=== PATIENT | male | born 1950 | race Caucasian/White ===

== ENCOUNTER 2016-10-24 04:52 | Emergency (ER) | payer MEDICARE, OTHER ==
[~2016-10-24] VITALS: Ht 177.8 cm; Wt 88.5 kg
--- NOTE | ~2016-10-24 | EKG ---
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: [facility] : 1950 Requested By: Renae Levin Order Number: [id number] MD: Luis Carlos Walsh Measurements Intervals [place] Rate: 57 P: 25 NV: 162 QRS: -39 QRSD: 159 T: -8 QT: 481 QTc: 469 Interpretive Statements Sinus rhythm Right bundle branch block Left anterior hemiblock Nonspecific T wave abnormality Compared to ECG 09/21/2016 22:59:56 No significant change was found Electronically Signed On 10-24-2016 7:56:37 DOCK BUILDER by Luis Carlos Walsh [email or web address] <ELECTRONICALLY SIGNED> By: Luis Carlos Walsh MD, [facility] 10/24/16 0756 1 Luis Carlos Walsh MD, [facility] /EPI
[~2016-10-24 04:52] MED LIST: ALBUTEROL2.5 MG/0.5 INH; AMBIEN 10 MG TA10 MG PO; ASPIR 8181 MG PO; ASPIRIN325 PO; AZITHROMYCIN 2250 MG PO; B-COMPLEX PLUS1 EACH PO; CLONIDINE0.1 PO; COMBIVENT; COZAAR 50 MG TA50 M2 PO; DELTASONE20 MG PO; FLOMAX0.4 MG PO; GABAPENTIN 100100 MG PO; IBUPROFEN 400400 M2 PO; LIPITOR10 MG PO; MELATONIN3 MG PO; MUCINEX TA600 MG/TA2 PO; MULTIVITAMINS PO; NEBULIZER MISCELL; NEURONTIN 300300 M1 PO; NEURONTIN600 MG PO; NORCO 5-325 TA1 EACH PO; NORVASC 2.5 MG2.5 M1 PO; NORVASC 5 MG TAB5 MG PO; NORVASC10 MG PO; NORVASC2.5 MG PO; NORVASC5 MG PO; PREDNISONE 20 M20 MG PO; PROVENTIL HFA6.7 G1 INH; SERTRALINE HCL50 MG PO; STIOLTO RESPIMAT4 GM; TOPROL XL50 MG PO; TUSSIN CF COUG118 M2 PO; VALIUM2 MG; VALIUM2 MG PO; VALIUM5 MG PO; VENTOLIN HFA 1818 GM INH; VITAMIN D3400 UNIT PO; XANAX 0.5 MG0.5 M1; ZOLOFT50 MG PO; ZPAK PO
[2016-10-24 06:03] LABS: ABSOLUTE NEUTROPHILS 3.4 thou/uL (1.4-8.2); BASOPHILS 0.6 % (0.0-2.0); EOSINOPHILS 4.4 % (0.0-3.0); HEMATOCRIT 40.9 % (42.0-52.0); HEMOGLOBIN 14.5 gm/dL (14.0-18.0); LYMPHOCYTES 16.2 % (24.0-44.0); MCH 31.3 pg (26.0-34.0); MCHC 35.5 % (28.0-37.0); MCV 88.3 fL (80.0-100.0); MONOCYTES 7.8 % (1.0-8.0); PLATELET COUNT 189 thou/uL (150-400); RBC 4.63 mil/uL (4.50-6.00); RDW 13.5 % (10.5-14.5); WBC 4.9 thou/uL (4.0-11.0)
[2016-10-24 06:10] LABS: MANUAL DIFF NO
[2016-10-24 06:11] LABS: ANION GAP 8 mmol/L (7-16); BUN 12 mg/dL (7-18); CALCIUM 8.6 mg/dL (8.5-10.1); CHLORIDE 104 mmol/L (98-107); CO2 29 mmol/L (21-32); CREATININE 0.8 mg/dL (0.6-1.3); GLUCOSE 103 mg/dL (70-99); POTASSIUM 3.5 mmol/L (3.5-5.1); SODIUM 141 mmol/L (136-145)
[2016-10-24] MEDS ORDERED: PREDNISONE 20 M20 MG PO (06:24)
[2016-10-24] MEDS ORDERED: AZITHROMYCIN250 MG PO (06:24)
[2016-10-24] MEDS ORDERED: NORVASC5 MG PO (06:24)
[2016-10-24 06:25] LABS: ALBUMIN 3.6 g/dL (3.4-5.0); ALKALINE PHOSPHATASE 72 U/L (46-116); NT-PRO BRAIN NAT PEPTIDE 100 pg/mL (<300); SGOT 16 U/L (15-37); SGPT 18 U/L (30-65); TOTAL BILIRUBIN 0.4 mg/dL (<0.1-1.0); TOTAL PROTEIN 6.4 g/dL (6.4-8.2); TROPONIN-I < 0.04 ng/mL (<0.04-0.07)
[2016-11-01] MEDS ORDERED: LEVALBUTER1.25 MG/0. INH (01:36)
[2016-11-01] MEDS ORDERED: GABAPENTIN 100100 MG PO (20:10)
[2016-11-03] MEDS ORDERED: GABAPENTIN 100100 MG PO (09:03)
[2016-11-03] MEDS ORDERED: MIRALAX17 GM PO (14:05)
[2016-11-03] MEDS ORDERED: COLACE 100 MG100 MG PO (14:05)
[2016-11-03] MEDS ORDERED: NEXIUM40 MG PO (14:48)
== END 2016-10-24 07:17 | disposition home or self-care (01) ==
LOC: ER 04:52
PROVIDERS: Emergency Medicine
DX: J44.1 Chronic obstructive pulmonary disease with (acute) exacerbation (principal); Z76.0 Encounter for issue of repeat prescription; K21.9 Gastro-esophageal reflux disease without esophagitis; F41.8 Other specified anxiety disorders; I10 Essential (primary) hypertension; Z88.8 Allergy status to other drugs, medicaments and biological substances; Z87.891 Personal history of nicotine dependence

== ENCOUNTER 2016-10-28 22:56 | Emergency (ER) | payer MEDICARE, OTHER ==
[~2016-10-28] VITALS: Ht 170.2 cm; Wt 88.5 kg
[~2016-10-28 22:56] MED LIST changes: +AZITHROMYCIN250 MG PO
[2016-11-01] MEDS ORDERED: LEVALBUTER1.25 MG/0. INH (01:36)
[2016-11-01] MEDS ORDERED: GABAPENTIN 100100 MG PO (20:10)
[2016-11-03] MEDS ORDERED: GABAPENTIN 100100 MG PO (09:03)
[2016-11-03] MEDS ORDERED: MIRALAX17 GM PO (14:05)
[2016-11-03] MEDS ORDERED: COLACE 100 MG100 MG PO (14:05)
[2016-11-03] MEDS ORDERED: NEXIUM40 MG PO (14:48)
== END 2016-10-29 00:39 | disposition home or self-care (01) ==
LOC: ER 22:56
DX: I10 Essential (primary) hypertension (principal); H93.19 Tinnitus, unspecified ear; R06.02 Shortness of breath; F41.9 Anxiety disorder, unspecified; F32.9 Major depressive disorder, single episode, unspecified; K21.9 Gastro-esophageal reflux disease without esophagitis; J44.9 Chronic obstructive pulmonary disease, unspecified; Z88.8 Allergy status to other drugs, medicaments and biological substances; Z87.891 Personal history of nicotine dependence

== ENCOUNTER 2020-06-02 15:39 | Inpatient (IN) | payer OTHER ==
[~2020-06-02] VITALS: Ht 175.3 cm; Wt 59.1 kg
--- NOTE | ~2020-06-02 | EMS ---
[facility] [address] [place] [address] EMS Patient Care Report Name: TAYLER JARAMILLO Room #: 459-P ADM IN M.R.#: [id number] Admission: 06/02/20 Attend Phys: Dakota Norton MD Discharge: Date of : 50 Report #: [id number] THIS REPORT FOR: //name// Report Transmitted: 06/07/2020 06:59 EMS Care Summary [place], [place]/[facility] Incident [id number] @ 06/02/2020 14:48 Incident Location [address] [place] [address] Patient TAYLER JARAMILLO Male, 69 Years 1950 Patient Address [address] [place] [address] Chief Complaint Pt appeared weak Disposition Transported [place] Dispatch Reason Sick Person Transported To [facility] Narrative Called to the scene for a welfare on an unknown. Upon arrival, [facility] on the scene. Pt was at a local motel and had been there for several days. Staff was able to communicate as to why, just said someone check him in. Pt was awake and talking, but appeared to be fairly sick. He was very weak, appeared pale, possibly a little diaphoretic, barely answer questions and when he did it was very hard to understand him. He did not appear to be in any pain or respiratory distress. He agreed to go to [facility] ER for further eval and tx. Because of unknown Covid status, crews donned PPE. A mask was placed on the pt. He was moved to the EMS cot and loaded into the ambulance w/o incident. Vitals obtained. IV & D-stick. 4 Lead. Vitals repeated. Pt heart rate was [facility] [address] [place] [address] EMS Patient Care Report Name: TAYLER JARAMILLO Room #: 459-P ADM IN M.R.#: [id number] Admission: 06/02/20 Attend Phys: Dakota Norton MD Discharge: Date of : 50 Report #: [id number] in the 40s, strong radial and adequate BP. En route: RR to [facility]. Arrived: pt taken to ER #12 and moved to their bed w/o incident. Pt care & report to ER staff. Initial Vitals @15:28P: 49,SpO2: 99, @15:30P: 49,SpO2: 99, @15:27P: 48,R: 12,BP: 128/81,GCS: 14,Glucose: 80,SpO2: 99,Revised Trauma: 12, @15:27P: 48, @15:23P: 46,R: 12,BP: 133/82,Pain: 0/10,GCS: 14,Revised Trauma: 12, @15:31P: 48,SpO2: 98,OR Suspected: false Assessments @15:05MENTAL:Confused,Person Oriented,Place Oriented,SKIN:Pale,HEENT:LUNG SOUNDS:ABDOMEN:PELVIS//GI:EXTREMITIES:Left Arm: No Abnormalities,Right Arm: No Abnormalities,Left Leg: No Abnormalities,Right Leg: No Abnormalities,PULSE:Radial: 2+ Normal,NEURO:No Abnormalities, Impression Generalized Weakness Procedures @15:05ALS AssessmentResponse: UnchangedSucceeded@15:12StretcherResponse: Unchanged@15:233-Lead ECGResponse: UnchangedSucceeded@15:28Saline Lock 8cc (18 ga) Site: Antecubital-LeftResponse: UnchangedSucceeded Timeline 14:43,Call Received 14:43,Dispatch Notified 14:48,Dispatched 14:50,En Route 15:03,On Scene 15:05,At Patient 15:05,ALS Assessment,Response: UnchangedSucceeded, 15:12,Stretcher,Response: Unchanged 15:23,3-Lead ECG,Response: UnchangedSucceeded, 15:23,BP: 133/82 M,PULSE: 46,RR: 12 R,SPO2: Ox,ETCO2: ,BG: ,PAIN: 0,GCS: 14, 15:27,BP: / M,PULSE: 48,RR: R,SPO2: Ox,ETCO2: ,BG: ,PAIN: ,GCS: , 15:27,BP: 128/81 M,PULSE: 48,RR: 12 R,SPO2: 99 Ox,ETCO2: ,B,PAIN: ,GCS: 14, 15:28,Saline Lock 8cc 18 ga Site: Antecubital-Left,Response: UnchangedSucceeded, 15:28,BP: / M,PULSE: 49,RR: R,SPO2: 99 Ox,ETCO2: ,BG: ,PAIN: ,GCS: , 15:29,Depart Scene 15:30,BP: / M,PULSE: 49,RR: R,SPO2: 99 Ox,ETCO2: ,BG: ,PAIN: ,GCS: , 15:31,BP: / M,PULSE: 48,RR: R,SPO2: 98 Ox,ETCO2: ,BG: ,PAIN: ,GCS: , 15:35,At Destination [facility] [address] [place] [address] EMS Patient Care Report Name: TAYLER JARAMILLO Room #: 459-P ADM IN M.R.#: [id number] Admission: 06/02/20 Attend Phys: Dakota Norton MD Discharge: Date of : 50 Report #: [id number] 15:35,Call Closed Disclaimer v1.1 Copyright 2020 [employer] This EMS Care Summary contains data elements from the applicable legal record (which may be displayed differently). It is designed to provide pertinent information for the following purposes: continuity of care, clinical quality, and state data reporting. The complete legal record is available to ED staff and administrators of the receiving hospital in [employer] Patient Tracker. All data is provided "as is."
--- NOTE | ~2020-06-02 | HC ---
[facility] [place] [address] CONSULTATION Name: TAYLER JARAMILLO Room #: 459-P ADM IN M.R.#: [id number] Admission: 06/02/20 Attend Phys: Dakota Norton MD Discharge: Date of : 50 Report #: [id number] THIS REPORT FOR: cc: MIMI - Patsy family physician/PCP MIMI - Patsy family physician/PCP Neri Collins MD ~ CC: Dakota LE physician/PCP DATE OF SERVICE: 06/07/2020 HISTORY OF PRESENT ILLNESS: The patient is a 69-year-old male admitted from an extended stay hotel with mental status changes, confusion. Apparently, he had not been out of bed for several days. Noted to have a right upper lobe mass ____ liver densities. Plan from Pulmonary is that he needs bronchoscopy and a biopsy to be scheduled as an outpatient. He has been diagnosed with toxic metabolic encephalopathy. He was seen by Neurology and thought to have a baseline dementia. MRI showed some chronic changes. We are seeing him in rehabilitation medicine consultation. 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 HABITS: A 76-waft-obwq history of tobacco. MEDICATIONS: Please see the full medication listing. ALLERGIES: As listed. SOCIAL HISTORY: The patient is a limited historian. He was staying at the extended stay hotel as noted above. Apparently, he had been to [place] visiting his daughter. Per case management notes, the family is wanting him to move into [place]. It sounds like he has had a decline over the past several weeks to months. The patient's family had arranged for some private duty to check in on him and now they are interested in having him moved to [place]. REVIEW OF SYSTEMS: Limited. PHYSICAL EXAMINATION: GENERAL: This is a 69-year-old slender white male sitting up. He was essentially nonverbal for me, will follow basic 1 step commands. NEUROLOGIC: Appears to have strength grade 4- to 3+/5 both upper and lower extremities. He has been up with physical therapy and was min assist coming to stand and ambulated 30 feet min assist with the IV pole. As far as his swallowing, he is on a pure[place] [address] CONSULTATION Name: TAYLER JARAMILLO Room #: 459-P [facility] IN .R.#: [id number] Admission: 06/02/20 Attend Phys: Dakota Norton MD Discharge: Date of : 50 Report #: [id number] ASSESSMENT: This is a 69-year-old male with the following problem list: 1. Metabolic encephalopathy. 2. Apparent baseline dementia. 3. Right lung mass, new diagnosis with note of some liver densities. He is to have bronchoscopy and biopsy as an outpatient. 4. Hypertension. 5. Chronic obstructive pulmonary disease. 6. History of squamous cell cancer. PLAN: My understanding is that the patient is to be moved to [place] as per the family request. He had been in an extended stay hotel. I am in favor of this plan and would not anticipate that he would be an [address] inpatient rehabilitation candidate for this reason. We will continue to follow along with you for now, but would be my understanding that he would go to [place]. Thank you for asking me to assist in this patient's care. By: 1046 [id number] Neri Collins MD /CARLOS
[~2020-06-02 15:39] MED LIST changes: +COLACE 100 MG100 MG PO; +LEVALBUTER1.25 MG/0. INH; +MIRALAX17 GM PO; +NEXIUM40 MG PO
[2020-06-02 15:40] VITALS: BP 128/81
[2020-06-02 16:10] LABS: ANION GAP 6 mmol/L (7-16); BUN 23 mg/dL (7-18); CALCIUM 8.8 mg/dL (8.5-10.1); CHLORIDE 106 mmol/L (98-107); CO2 30 mmol/L (21-32); CREATININE 0.8 mg/dL (0.7-1.3); GLUCOSE 74 mg/dL (74-106); POTASSIUM 3.7 mmol/L (3.5-5.1); SODIUM 142 mmol/L (136-145)
[2020-06-02 16:14] LABS: ABSOLUTE NEUTROPHILS 2.9 thou/uL (1.4-8.2); BASOPHILS 0.8 % (0.0-2.0); EOSINOPHILS 2.8 % (0.0-3.0); HEMATOCRIT 40.5 % (42.0-52.0); HEMOGLOBIN 14.1 gm/dL (14.0-18.0); LYMPHOCYTES 19.1 % (24.0-44.0); MCH 31.8 pg (26.0-34.0); MCHC 34.8 g/dL (28.0-37.0); MCV 91.3 fL (80.0-100.0); MONOCYTES 9.6 % (1.0-8.0); PLATELET COUNT 181 thou/uL (150-400); POLYS 67.7 % (36.0-66.0); RBC 4.44 mil/uL (4.50-6.00); WBC 4.2 thou/uL (4.0-11.0)
[2020-06-02 16:19] LABS: MAGNESIUM 2.1 mg/dL (1.8-2.4); TROPONIN-I <0.06 ng/mL (<0.06)
[2020-06-02 17:24] LABS: SALICYLATE < 2.8 mg/dL (2.8-20.0)
[2020-06-02 18:34] LABS: URINE BILIRUBIN NEGATIVE (Negative); URINE BLOOD NEGATIVE (Negative); URINE CLARITY CLEAR; URINE COLOR YELLOW; URINE GLUCOSE-RANDOM* NEGATIVE (Negative); URINE KETONES 1+ (Negative); URINE LEUKOCYTES-REFLEX NEGATIVE (Negative); URINE NITRITE-REFLEX NEGATIVE (Negative); URINE PROTEIN (DIPSTICK) NEGATIVE (Negative); URINE SPECIFIC GRAVITY 1.025 (1.005-1.035); URINE UROBILINOGEN 0.2 E.U./dl (0.2-1.0)
[2020-06-02 18:53] LABS: AMP/METHAMP Negative (Negative); BARBITURATES Negative (Negative); BENZODIAZEPINES Negative (Negative); COCAINE Negative (Negative); METHADONE Negative (Negative); OPIATES Negative (Negative); PCP Negative (Negative)
[2020-06-02 22:15] VITALS: BP 118/73
[2020-06-02 22:40] VITALS: BP 117/76
[2020-06-02 23:25] VITALS: BP 132/74
[2020-06-03 04:29] VITALS: BP 141/78
[2020-06-03 06:12] LABS: HEMOGLOBIN 13.4 gm/dL (14.0-18.0); MCH 32.2 pg (26.0-34.0); MCHC 35.3 g/dL (28.0-37.0); MCV 91.2 fL (80.0-100.0); RBC 4.17 mil/uL (4.50-6.00); RDW 13.2 % (10.5-14.5); WBC 4.1 thou/uL (4.0-11.0)
[2020-06-03 06:37] LABS: CALCIUM 8.5 mg/dL (8.5-10.1); CREATININE 0.5 mg/dL (0.7-1.3); MAGNESIUM 2.1 mg/dL (1.8-2.4); POTASSIUM 3.6 mmol/L (3.5-5.1)
[2020-06-03 07:37] VITALS: BP 119/72
--- NOTE | 2020-06-03 09:13 | EKG ---
[facility] [place] [address] ELECTROCARDIOGRAM REPORT Name: FCO JARAMILLO Room #: 359-P ADM IN M.R.#: [id number] Admission: 06/02/20 Attend Phys: Dakota Norton MD Discharge: Date of : 50 Report #: [id number] THIS REPORT FOR: cc: MIMI - No family physician/PCP FAM - No family physician/PCP Osbaldo Wright MD ~ THIS REPORT FOR: //name// [facility] ED Test Date: 2020-06-02 Test Time: 16:04:26 Pat Name: FCO JARAMILLO Department: Room: [facility] Gender: M Mutual Funds Agent: bill : 1950 Requested By: Fco Flores Order Number: [id number] MD: Osbaldo Wright Measurements Intervals [place] Rate: 46 P: 25 PA: 179 QRS: -63 QRSD: 182 T: 51 QT: 504 QTc: 441 Interpretive Statements Sinus bradycardia RBBB and LAFB Probable left ventricular hypertrophy Baseline wander in lead(s) V4 Compared to ECG 10/31/2016 21:35:34 Sinus rhythm no longer present Electronically Signed On 06-03-2020 9:12:46 CDT by Osbaldo Wright [email or web address] <ELECTRONICALLY SIGNED> By: Osbaldo Wright MD 06/03/20 0912 [id number] [id number] Osbaldo Wright MD /EPI
[2020-06-03 16:19] VITALS: BP 109/70
[2020-06-04 06:26] VITALS: BP 144/80
[2020-06-04 07:13] VITALS: BP 131/81
[2020-06-04 15:13] VITALS: BP 114/75
[2020-06-04 20:05] VITALS: BP 122/74
[2020-06-05] VITALS (7 sets, daily range): BP systolic 132–149; BP diastolic 67–84
[2020-06-05 05:28] LABS: HCO3 26.5 mmol/L (22.0-26.0); PCO2 40.9 mmHg (35.0-45.0); PO2 78.3 mmHg (80.0-100.0); pH 7.429 (7.360-7.450); sO2 95.9 % (92.0-98.0)
[2020-06-05 05:36] LABS: ABSOLUTE NEUTROPHILS 3.6 thou/uL (1.4-8.2); BASOPHILS 0.5 % (0.0-2.0); EOSINOPHILS 1.7 % (0.0-3.0); HEMATOCRIT 36.6 % (42.0-52.0); HEMOGLOBIN 13.2 gm/dL (14.0-18.0); LYMPHOCYTES 10.7 % (24.0-44.0); MCH 32.7 pg (26.0-34.0); MCHC 36.1 g/dL (28.0-37.0); MCV 90.5 fL (80.0-100.0); PLATELET COUNT 161 thou/uL (150-400); POLYS 80.1 % (36.0-66.0); RBC 4.04 mil/uL (4.50-6.00); RDW 12.9 % (10.5-14.5); WBC 4.5 thou/uL (4.0-11.0)
[2020-06-05 06:01] LABS: ALBUMIN 2.9 g/dL (3.4-5.0); CALCIUM 8.3 mg/dL (8.5-10.1); CREATININE 0.6 mg/dL (0.7-1.3); POTASSIUM 3.7 mmol/L (3.5-5.1); TOTAL BILIRUBIN 0.4 mg/dL (0.2-1.0); TOTAL PROTEIN 5.7 g/dL (6.4-8.2)
[2020-06-06 07:49] VITALS: BP 152/82
[2020-06-06 15:30] VITALS: BP 123/71
[2020-06-06 19:31] VITALS: BP 125/66
[2020-06-07 08:00] VITALS: BP 128/66
[2020-06-07] MEDS ORDERED: CARBIDOPA-LEVO1 EAC9 PO (11:42)
[2020-06-07] MEDS ORDERED: AUGMENTIN 500-1 EACH PO (11:44)
[2020-06-07 15:37] VITALS: BP 136/69
[2020-06-07 19:10] VITALS: BP 140/72
[2020-06-08 07:00] VITALS: BP 133/85
== END 2020-06-08 17:43 | DRG 180 ==
LOC: ER 15:39 → 4W 19:27 → EROBS 19:27 → 3W 19:27 → 4W 06-04 19:56
PROVIDERS: Emergency Medicine; Nurse Practitioner Family; Pediatrics; Psychiatry & Neurology Neurology; ADMIT Hospitalist; ATTEND Hospitalist
DX: C34.91 Malignant neoplasm of unspecified part of right bronchus or lung (principal); G93.41 Metabolic encephalopathy; J96.21 Acute and chronic respiratory failure with hypoxia; Z68.1 Body mass index [BMI] 19.9 or less, adult; C78.7 Secondary malignant neoplasm of liver and intrahepatic bile duct; D49.1 Neoplasm of unspecified behavior of respiratory system; R91.8 Other nonspecific abnormal finding of lung field; I10 Essential (primary) hypertension; F41.9 Anxiety disorder, unspecified; F32.9 Major depressive disorder, single episode, unspecified; K21.9 Gastro-esophageal reflux disease without esophagitis; R62.7 Adult failure to thrive; R53.1 Weakness; N40.0 Benign prostatic hyperplasia without lower urinary tract symptoms; R47.1 Dysarthria and anarthria; G47.33 Obstructive sleep apnea (adult) (pediatric); E66.01 Morbid (severe) obesity due to excess calories; G20 Parkinson's disease; J44.9 Chronic obstructive pulmonary disease, unspecified; F02.80 Dementia in other diseases classified elsewhere, unspecified severity, without behavioral disturbance, psychotic disturbance, mood disturbance, and anxiety; Z66 Do not resuscitate; Z20.828 Contact with and (suspected) exposure to other viral communicable diseases; Z79.899 Other long term (current) drug therapy; Z88.5 Allergy status to narcotic agent; Z88.8 Allergy status to other drugs, medicaments and biological substances; Z87.891 Personal history of nicotine dependence; Z86.018 Personal history of other benign neoplasm
CPT/HCPCS: 10047; 10779

== ENCOUNTER 2020-06-23 13:48 | Emergency (ER) | payer MEDICARE, OTHER ==
[~2020-06-23] VITALS: Ht 177.8 cm; Wt 57.6 kg
[~2020-06-23 13:48] MED LIST changes: +AUGMENTIN 500-1 EACH PO; +CARBIDOPA-LEVO1 EAC9 PO
[2020-06-23 14:36] VITALS: BP 129/77
== END 2020-06-23 15:30 | disposition home or self-care (01) ==
LOC: ER 13:48
DX: K40.90 Unilateral inguinal hernia, without obstruction or gangrene, not specified as recurrent (principal); R41.82 Altered mental status, unspecified; I10 Essential (primary) hypertension; F32.9 Major depressive disorder, single episode, unspecified; F41.9 Anxiety disorder, unspecified; K21.9 Gastro-esophageal reflux disease without esophagitis; J44.9 Chronic obstructive pulmonary disease, unspecified; Z79.899 Other long term (current) drug therapy; Z79.2 Long term (current) use of antibiotics; Z88.8 Allergy status to other drugs, medicaments and biological substances; Z87.891 Personal history of nicotine dependence

== ENCOUNTER 2020-08-06 19:47 | Inpatient (IN) | payer MEDICARE, OTHER ==
[~2020-08-06] VITALS: Ht 170.2 cm; Wt 54.8 kg
[2020-08-06 19:47] VITALS: BP 124/79
[2020-08-06 20:04] LABS: ABSOLUTE NEUTROPHILS 4.3 thou/uL (1.4-8.2); BASOPHILS 0.7 % (0.0-2.0); EOSINOPHILS 2.1 % (0.0-3.0); HEMOGLOBIN 12.8 gm/dL (14.0-18.0); LYMPHOCYTES 9.3 % (24.0-44.0); MCH 31.1 pg (26.0-34.0); MCHC 34.7 g/dL (28.0-37.0); MCV 89.6 fL (80.0-100.0); MONOCYTES 5.5 % (1.0-8.0); PLATELET COUNT 158 thou/uL (150-400); POLYS 82.4 % (36.0-66.0); RBC 4.13 mil/uL (4.50-6.00); RDW 13.5 % (10.5-14.5); WBC 5.2 thou/uL (4.0-11.0)
[2020-08-06 20:11] LABS: CALCIUM 9.3 mg/dL (8.5-10.1); CREATININE 0.9 mg/dL (0.7-1.3); MAGNESIUM 2.4 mg/dL (1.8-2.4); POTASSIUM 4.1 mmol/L (3.5-5.1)
[2020-08-06 20:14] LABS: URINE BILIRUBIN NEGATIVE (Negative); URINE BLOOD 3+ (Negative); URINE CLARITY CLEAR; URINE COLOR YELLOW; URINE GLUCOSE-RANDOM* NEGATIVE (Negative); URINE KETONES NEGATIVE (Negative); URINE LEUKOCYTES-REFLEX NEGATIVE (Negative); URINE NITRITE-REFLEX NEGATIVE (Negative); URINE PROTEIN (DIPSTICK) NEGATIVE (Negative); URINE SPECIFIC GRAVITY 1.025 (1.005-1.035); URINE UROBILINOGEN 0.2 E.U./dl (0.2-1.0)
[2020-08-06 20:20] LABS: MUCUS 0-3 Light strn/LPF (None Seen); SQUAMOUS 0-3 Few /LPF (0-3); URINE RBC >20 Many /HPF (0-2)
[2020-08-06 20:21] LABS: HYALINE CASTS 0-3 Few /LPF (None Seen); URINE WBC-REFLEX 0-5 Rare /HPF (0-5)
[2020-08-06 20:22] LABS: BACTERIA-REFLEX 1-9 Few /HPF (None Seen); CRYSTALS None Seen /LPF (None Seen)
[2020-08-06] MEDS ORDERED: ASPIRIN PO (22:17)
[2020-08-06 22:36] VITALS: BP 131/76
--- NOTE | 2020-08-06 22:37 | NUR ---
HAND OFF TOOL SENT TO [facility]
[2020-08-06 22:44] VITALS: BP 131/76
[2020-08-06 23:12] VITALS: BP 138/82
--- NOTE | 2020-08-06 23:15 | NUR ---
Assumed care of patient this pm shift. Patient transferred via cart from the emergency room. Patient is mostly nonverbal and when he speaks he speaks in a whisper. Patient can write to make needs known. Patient is weak and was tranferred to bed from er cart via draw sheet and assist x3. Patient denies pain. Patient signed consents. We will continue to monitor via hospital protocol.
[2020-08-07 05:55] LABS: HEMATOCRIT 37.1 % (42.0-52.0); HEMOGLOBIN 12.7 gm/dL (14.0-18.0); MCH 30.9 pg (26.0-34.0); MCHC 34.3 g/dL (28.0-37.0); RBC 4.12 mil/uL (4.50-6.00); RDW 13.2 % (10.5-14.5); WBC 4.3 thou/uL (4.0-11.0)
[2020-08-07 06:09] LABS: CALCIUM 8.7 mg/dL (8.5-10.1); CREATININE 0.8 mg/dL (0.7-1.3); MAGNESIUM 2.3 mg/dL (1.8-2.4); POTASSIUM 3.7 mmol/L (3.5-5.1)
[2020-08-07 14:17] VITALS: BP 115/73
--- NOTE | 2020-08-07 18:42 | NUR ---
ASSUMED CARE OF PATIENT AT 0700. ASSESSMENT CHARTED. MEDS GIVEN PER MAR. VSS. PATIENT IS ALERT BUT IS NON-VERBAL MOSTLY. PATIENT IS ABLE TO USE A NOTEPAD AND PEN TO WRITE HIS NEEDS. PATIENT DENIES PAIN BUT EXPRESSES CONCERN FOR WANTING TO EAT. ST WAS CALLED AND PATIENT WAS FOUND HIDING CHEETOS IN HIS SHEETS. PATIENT HAS APHAGIA AND IS UNABLE TO EAT BY HIMSELF. ST PUT DIET. PATIENT IS TO HAVE NURSE SUPERVISION WHEN EATING AT ALL TIMES. SUPPLEMENTS ARE PROVIDED PATIENT IS CACHECTIC D/T INABILITY TOP KEEP FOOD DOWN. PATIENT WAS UP X 1 WITH CANE TO CHAIR. USES URINAL TO VOID. PATIENT HAS NOT HAD A BM TODAY. FREQUENT CHECKS ON PATIENT. WILL CONTINUE TO MONITOR
[2020-08-07 21:37] VITALS: BP 113/63
--- NOTE | 2020-08-08 04:25 | NUR ---
Pt. rested quietly at intervals during the night when checked on during frequent rounds. He offers no c/o pain. Incontinent of urine and kim care was given. Pt. speaks very softly and at times can be difficult to communicate with. Bed alarm is on.
[2020-08-08 05:50] LABS: ABSOLUTE NEUTROPHILS 3.8 thou/uL (1.4-8.2); BASOPHILS 0.3 % (0.0-2.0); EOSINOPHILS 1.4 % (0.0-3.0); HEMATOCRIT 35.3 % (42.0-52.0); HEMOGLOBIN 12.1 gm/dL (14.0-18.0); MCH 31.2 pg (26.0-34.0); MCHC 34.4 g/dL (28.0-37.0); MCV 90.5 fL (80.0-100.0); MONOCYTES 5.5 % (1.0-8.0); PLATELET COUNT 129 thou/uL (150-400); POLYS 85.8 % (36.0-66.0); RDW 13.2 % (10.5-14.5); WBC 4.4 thou/uL (4.0-11.0)
[2020-08-08 06:07] LABS: CALCIUM 8.4 mg/dL (8.5-10.1); CREATININE 0.8 mg/dL (0.7-1.3); MAGNESIUM 2.2 mg/dL (1.8-2.4); PHOSPHORUS 2.8 mg/dL (2.5-4.9); POTASSIUM 3.2 mmol/L (3.5-5.1); TOTAL BILIRUBIN 0.3 mg/dL (0.2-1.0); TOTAL PROTEIN 5.8 g/dL (6.4-8.2)
[2020-08-08 08:10] VITALS: BP 124/81
--- NOTE | 2020-08-08 12:32 | NUR ---
ASSUMED PT CARE THIS AM. PT VSS. PT IMPULSIVE, STANDING UP AND DOES NOT WAIT FOR NURSE TO PUT ON GAIT BELT OR GRAB WALKER. PT CONTINUES TO DO SO. PT EATING SLOWLY, BUT SWALLOWING FOOD. PT WRITES NEEDS DOWN ON PAPER TO COMMUNICATE. SLEEPING AT THE MOMENT. FLUIDS INFUSING. WILL CONTINUE TO MONITOR.
[2020-08-08 15:29] VITALS: BP 105/76
[2020-08-08 19:19] VITALS: BP 110/79
--- NOTE | 2020-08-09 05:43 | NUR ---
Pt. rested quietly at intervals during the night when checked on during frequent rounds. He has been able to void without difficulty and refused to be catherized. No c/o pain or discomfort. Ambulated with cane to the bathroom and he had a bowel movement. Assisted with partial sponge bath at the bathroom sink. Bed alarm in on.
[2020-08-09 06:10] LABS: BASOPHILS 0.5 % (0.0-2.0); EOSINOPHILS 2.8 % (0.0-3.0); HEMATOCRIT 34.6 % (42.0-52.0); HEMOGLOBIN 11.9 gm/dL (14.0-18.0); LYMPHOCYTES 6.9 % (24.0-44.0); MCHC 34.3 g/dL (28.0-37.0); MCV 90.2 fL (80.0-100.0); MONOCYTES 6.6 % (1.0-8.0); PLATELET COUNT 147 thou/uL (150-400); POLYS 83.2 % (36.0-66.0); RBC 3.84 mil/uL (4.50-6.00); RDW 13.4 % (10.5-14.5); WBC 4.8 thou/uL (4.0-11.0)
[2020-08-09 06:19] LABS: CALCIUM 8.4 mg/dL (8.5-10.1); CREATININE 0.7 mg/dL (0.7-1.3); MAGNESIUM 2.2 mg/dL (1.8-2.4); PHOSPHORUS 2.3 mg/dL (2.5-4.9); POTASSIUM 4.1 mmol/L (3.5-5.1)
--- NOTE | 2020-08-09 07:39 | EKG ---
[facility] [place] [address] ELECTROCARDIOGRAM REPORT Name: FCO JARAMILLO Room #: 460-P ADM IN M.R.#: [id number] Admission: 08/06/20 Attend Phys: Nancy Yañez MD Discharge: Date of : 50 Report #: [id number] THIS REPORT FOR: cc: Jeyson Monroe MD, Shyam MD Lundgren,Luis Carlos Nicolas MD [facility] ~ THIS REPORT FOR: //name// [facility] ED Test Date: 2020-08-06 Test Time: 20:04:28 Pat Name: FCO JARAMILLO Department: Room: [facility] Gender: M Animal Care Supervisor: [facility] 1950 Requested By: Fco Flores Order Number: [id number] MD: Luis Carlos Walsh Measurements Intervals [place] Rate: 51 P: 38 [place]: 173 QRS: -62 QRSD: 162 T: 68 QT: 511 QTc: 471 Interpretive Statements Sinus rhythm RBBB and LAFB Compared to ECG 06/02/2020 16:04:26 Sinus bradycardia no longer present Electronically Signed On 08-09-2020 7:39:32 SHEARING SHED WORKER by Luis Carlos Walsh [email or web address] <ELECTRONICALLY SIGNED> By: Luis Carlos Walsh MD, FAC 08/09/20 0739 03 03 Luis Carlos Walsh MD, [facility] /EPI
[2020-08-09 08:00] VITALS: BP 102/66
--- NOTE | 2020-08-09 13:43 | NUR ---
PT A&OX2-3, VSS, AFEBRILE, DENIES PAIN. PATIENT USES WRITING BOARD TO COMMUNICATE. PATIENT TOLERATING DIET AND EATING 90 PERCENT. PT HAD PT/OT TODAY. NO SIGNS OF DISTRESS. WILL CONTINUE TO MONITOR.
[2020-08-09 15:30] VITALS: BP 116/67
--- NOTE | 2020-08-09 15:57 | NUR ---
PT ADMITTED RELATED TO DYSPHAGIA; WEAKNESS. CM REVIEWED CHART AND SPOKE WITH CARE TEAM. CM VISITED WITH PT AT BEDSIDE THIS AFTERNOON. PT IS HARD TO UNDERSTAND BUT IS ABLE TO COMMUNICATE VERBALLY. PT INDICATED HE HAD BEEN LIVING IN [place] N[place]K CUT[place]. 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 CHART INDICATED THAT PT HAD [place] FEMALE CAREGIVERS WITH HIM BUT PT DIDN'T CONFIRM THIS. AT LAST ADMISSION TO HAD DISCHARGED TO RW. H&P INDICATED THAT PT LEFT AMA AND RETURNED TO [place]. PT INDICATED HE WOULDN'T RETURN TO RW. HE ASKED ABOUT GETTING DENTURES. PT INDICATED CM COULD SPEAK WITH PT'S CONTACTS ADRY MACARIO AND BROTHER. PT INDICATED THAT HE WASN'T APPOSED TO GOING TO A FACILITY UPON DC JUST NOT RWBR. DR. GARSIA HAD REVIEWED PT'S CHART AND INDICATED THAT HE WOULD BE APPROPRIATE FOR HOSPICE SERVICES POTENTIALLY IN AN LTC SETTING. CM ASKED IF PT WAS FAMILIAR WITH HOSPICE CARE AND HE SAID HE HAD HEARD OF IT. BRIDGETTE HAD GOTTEN CALL FROM JULIO WITH [facility] RELATED TO A HOTLINE REPORT . HE INDICATED THAT HE HAD BEEN ENCOURAGING PT TO LOOK AT GOING SOMEWHERE WHERE HE COULD GET MORE CARE. CM TO PROVIDE PT WITH LIST OF FACILITIES FOR REVIEW. CM TO FOLLOW INDICATED WITH DC PLANNING.
[2020-08-09 19:35] VITALS: BP 120/85
[2020-08-09 21:20] LABS: URINE BILIRUBIN NEGATIVE (Negative); URINE BLOOD TRACE (Negative); URINE CLARITY SL CLOUDY; URINE COLOR YELLOW; URINE GLUCOSE-RANDOM* NEGATIVE (Negative); URINE KETONES TRACE (Negative); URINE LEUKOCYTES-REFLEX NEGATIVE (Negative); URINE NITRITE-REFLEX NEGATIVE (Negative); URINE PROTEIN (DIPSTICK) NEGATIVE (Negative); URINE UROBILINOGEN 0.2 E.U./dl (0.2-1.0)
--- NOTE | 2020-08-10 05:12 | NUR ---
ASSUMED CARE OF PT AT 1900HRS. PT AOX2-3 AND LETS NEEDS BE KNOWN. FALL PRECAUTION IN PLACE. PT DENIES PAIN, NAUSEA OR SOA. ASSESSMENT CHARTED. PT WAS ABLE TO GET COMFORTABLE AND SLEEP PART OF THE SHIFT. PT TOOK ALL HS MEDS CHRUSHED WITH PUDDING. VSS AND NO S/S OF ACUTE DISTRESS. WILL CONTINUE TO MONITOR.
[2020-08-10 10:46] VITALS: BP 121/87
--- NOTE | 2020-08-10 12:19 | NUR ---
Alert and orientated. Some verbalizations, mostly uses motions to communicate. Breath sounds clear and diminished. Reg HR auscultated. Color pink with brisk capillary refill and palpable peripheral pulses. Yellow urine per report. Active bowel sounds over soft, flat abdomen. Buttocks reddened. Plan on DC today.
--- NOTE | 2020-08-10 16:15 | NUR ---
PT INDICATED HE IS RECEPTIVE TO GOING TO A FACILITY FOR LTC. CM MET WITH PT AT BEDSIDE THIS DAY AND PROVIDED LIST FOR REVIEW. CM TO FOLLOW UP WITH PT TO SEE WHERE HE WANTS REFERRALS SENT. CM TO FOLLOW INDICATED WITH DC PLANNING.
[2020-08-10 17:02] VITALS: BP 109/66
[2020-08-10 19:30] VITALS: BP 112/73
--- NOTE | 2020-08-10 20:38 | NUR ---
ASSUMED CARE OF PATIENT AT 1200, PATIENT ALERT WITH APHASIC EXPRESSIONS, BUT WAS ABLE TO SPEAK AT TIMES DURNG THE SHIFT, DELAY WITH RESPONSE. MEDS GIVEN CRUSHED PRIOR TO TOASSUMING CARE, PATIENT ON SWALLOW PRECAUTIONS. ALERT AND ORIENTED 2-3. COVID TEST DONE FOR PLACEMENT. WILL CONTINUE TO MONITOR.
--- NOTE | 2020-08-11 04:25 | NUR ---
ASSUMED CARE OF PT AT 1900HRS. PT AOX2-[address] PT DENIED PAIN NAUSEA OR SOA. PT TOOK ALL MEDS CRUSHED WITH APPLESAUSE. PT WAS ABLE TO GET COMFORTABLE AND SLEEP PART OF THE SHIFT. VSS AND NO S/S OF AVUTE DISTRESS. WILL CONTINUE TO MONITOR.
--- NOTE | 2020-08-11 11:43 | NUR ---
CM MET WITH PT AT BEDSIDE THIS DAY. PT ASKED THAT REFERRALS BE SENT TO [facility] FOR REVIEW FOR POSSIBLE ADMISSION. PT HAS BEEN SEEN BY DR. NORRIS WHO INDICATED THAT PT HAS CAPACILITY TO MAKE DECISIONS AT THIS TIME. DR. GARSIA HAD SPOKEN WITH PT ABOUT HOSPICE SERVICES AND HE INDIACTED THAT HE WAS RECEPTIVE TO INFORMATION. LOOKING AT POSSIBLE SKILLED TO LTC WITH POSSIBLE HOSPICE SERVICES. CM TO FOLLOW INDICATED WITH DC PLANNING.
[2020-08-11 13:52] VITALS: BP 112/73
[2020-08-11 14:33] VITALS: BP 107/73
--- NOTE | 2020-08-11 16:50 | NUR ---
ASSUMED CARE OF PATIENT AT SHIFT CHANGE. ASSESSMENT CHARTED. MEDS GIVEN PER MAR. VSS. PATIENT IS AWAKE AND MAKES NEEDS KNOWN IN WRITING. ON PUREED DIET D/T APHAGIA BUT REFUSES HELP TO EAT. THIS NURSE OBSERVED PATIENT TRYING TO EAT BUT PATIENT GAVE A THUMBS UP AND SHOOK HEAD AFTER BEING ASKED IF ANY HELP WAS NEEDED. PATIENT INFORMED THIS NURSE ABOUT "DIAPER RASH". PATIENT ENCOURAGED TO REPOSITION OFTEN AND WAS PROVIDED BARRIER CREAM. BARRIER CREAM APPLIED TO BOTTOM W SLIGHT REDNESS NOTED. PATIENT VOICED NO NEEDS AND CONTINUES TO NAP ON AND OFF THROUGHOUT DAY. FALL PRECAUTIONS IN PLACE. PATIENT GETS UP AT TIMES AND SETS ALARM OFF; FREQUENT CHECKS DONE. WILL CONTINUE TO MONITOR
[2020-08-11 19:22] VITALS: BP 109/78
--- NOTE | 2020-08-11 19:26 | NUR ---
I AGREE WITH NURSING ASSESSMENT AND NURSING NOTE DONE BY JESSICA/STATE COMPTROLLER.
--- NOTE | 2020-08-12 02:52 | NUR ---
ASSUMED CARE OF PT AROUND 1900HR. PT AOX2-3 AND LETS NEEDS BE KNOWN. FALL PRECAUTION IN PLACE. PT DENIES PAIN, NAUSEA OR SOA. PT REFUSES ASSISTANCE WITH FEEDING. ASSESSMENT CHARTED. PT WAS ABLE TO GET COMFORTABLE AND SLEEP PART OF THE SHIFT. VSS AND NO S/S OF ACUTE DISTRESS. WILL CONTINUE TO MONITOR.
[2020-08-12 08:09] VITALS: BP 99/58
--- NOTE | 2020-08-12 11:29 | NUR ---
PATIENT WAS IN BED AWAKE WHEN CARE ASSUMED. PATIENT IS ALERT, AND ORIENTED X 3-4, ABLE TO MAKE NEED KNOWN. PATIENT DID EAT BREAKFAST WITHOUT ANY ISSUES. MORNING MEDICATION GIVEN WITHOUT ANY DIFFICULTY. LUNGS CLEAR TO AUSCULTAION IN ALL LOBE, BS+X4, ABD SOFT, FLAT, NON-TENDER TO TOUCH. PATIENT DENIES HAVING PHYSICAL PAIN. PATIENT WORKING WITH PHYSICAL THERAPY, TOLERATING IT WELL. NO SIGN OF ACUTE DISTRESS NOTED AT THIS TIME, ALL FALL PRECAUTIONS IN PLACE, CALL LIGHT IN REACH, WILL MONITOR FOR SAFETY.
--- NOTE | 2020-08-12 15:25 | NUR ---
[facility] HAVE RECEIVED REFERRAL AND ARE STILL REVIEWING OF THIS NOTE. CM TO FOLLOW INDICATED WITH DC PLANNING.
[2020-08-12 16:47] VITALS: BP 93/64
[2020-08-12 19:12] VITALS: BP 106/74
--- NOTE | 2020-08-13 00:41 | NUR ---
ASSUMED CARE OF PT AT 1900. PT IS A/O X2. PT THOUGH ABLE TO TALK AND CONVERSE AT TIMES DOES ONLY USE NONVERBAL WAYS TO COMMUNICATE SUCH POINTING, NODDING HIS HEAD TO YES/NO QUESTIONS AND WRITING NOTES. PT DID VERBALLY STATE HIS BOTTOM WAS HURTING. IT IS RED WITH NO OPEN SORES CURRENTLY. OFFERED BARRIER CREAM BUT PT REFUSED STATING IT DOESN'T HELP. PT USES CANE OR WALKER TO AMBULATE TO THE BR. UNSTEADY AND SHOWS SIGNS OF WEAKNESS. DENIES ANY PAIN OR DISCOMFORT AT THIS TIME. PT IS CURRENTLY LYING IN HIS BED AND APPEARS TO BE SLEEPING. FALL PRECAUTIONS ARE IN PLACE, CALL LIGHT IS WITHIN REACH. WILL CONTINUE TO MONITOR.
[2020-08-13 11:00] VITALS: BP 114/74
--- NOTE | 2020-08-13 13:56 | NUR ---
ASSUMED CARE OF PT AT 0700. PT IS A&OX4 AND FREQUENTLY DECLINES TO VERBALLY COMMUNICATE. PT REFUSES ASSISTANCE WITH FEEDING BUT WAS SUPERVISED BY NURSING STAFF FOR SAFETY. ACCU CHECKS ACHS. PT AMBULATED UNIT WITH THERAPY. IV TO LEFT FOREARM FLUSHES APPROPRIATELY. ORDERS FOR DISCAHRGE, AWAITING PLACEMENT AT THIS TIME. FALL PRECAUTIONS IN PLACE AND NURSING WILL CONTINUE TO MONITOR.
--- NOTE | 2020-08-13 14:28 | NUR ---
[facility] INDICATED THAT THEY AREN'T TAKING ANY NEW PATIENTS UNTIL SUNDAY OF NEXT WEEK. [facility] INDICATED THAT THEY HAD RUN PT'S INSURANCE AND THAT DON IS REVIEWING MEDICALLY. AWAITING RESPONSE.
[2020-08-13 17:09] VITALS: BP 114/74
[2020-08-13 17:10] VITALS: BP 105/72
[2020-08-13 20:00] VITALS: BP 102/67
--- NOTE | 2020-08-14 03:57 | NUR ---
ASSUMED CARE OF PT AT 1900. PT IS A/O X4. NONVERBAL BUT IS ABLE TO COMMUNICATE AT TIMES. DENIES ANY PAIN OR DISCOMFORT WITH NODDING HIS HEAD. VSS. FALL PREFCAUTIONS ARE IN PLACE, CALL LIGHT IS WITHIN REACH. WILL CONTINUE TO MONITOR.
[2020-08-14 08:35] VITALS: BP 115/74
--- NOTE | 2020-08-14 10:34 | NUR ---
Received awake on bed. Due medications given as prescribed, crushed and mixed with apple sauce. On MS, not on telemetry; no complains and signs of chest pain, crushing sensation and heaviness. On room air. With drooling noted- checked frequently and gown changed as needed; on swallowing protocol. On pureed diet- tolerating well, assisted in eating and drinking; no nausea, no vomiting and no abdominal pain. Continent of bowel and bladder, able to go to the toilet on standby assist with cane. With SL at L FA- intact and flushing well. Falls bundle in place. To continue monitoring patient. Still a/w placement- CM and physician aware.
[2020-08-14 16:29] VITALS: BP 101/64
[2020-08-14 19:49] VITALS: BP 119/74
--- NOTE | 2020-08-15 03:11 | NUR ---
ASSUMED CARE OF PT AT 1900. PT IS A/O X 4 AND UP SBA TO THE BR WITH A CANE. PT DOES NOT TALK AND APPEARS HAVING DIFFICULTY SWALLOWING WITH DROOLING TO THE LEFT SIDE OF HIS MOUTH. PT APPEARS TO BE WITHDRAWN TONIGHT AND DOESN'T WANT TO COMMUNICATE MUCH. AT THIS TIME HE IS LYING IN HIS BED AND APPEARS TO BE SLEEPING. FALL PRECAUTIONS ARE IN PLACE, CALL LIGHT IS WITHIN REACH. WILL CONTINUE TO MONITOR.
[2020-08-15 08:21] VITALS: BP 131/72
--- NOTE | 2020-08-15 09:48 | NUR ---
Received awake on bed. Due medications given as prescribed, able to swallow meds- on swallowing protocol. On room air. Vital signs stable. On MS, not on telemetry; no complains and signs of chest pain, crushing sensation and heaviness. On pureed diet- assisted and encouraged in eating and drinking; no nausea, no vomiting and no abdominal pain noted. Continent of bowel and bladder, assisted in going to the toilet using gait belt, cane and standby assist. Falls bundle in place. With SL at L FA. Still a/w placement- CM and physician aware. To continue monitoring patienet.
[2020-08-15 16:49] VITALS: BP 118/81
[2020-08-15 20:20] VITALS: BP 93/52
--- NOTE | 2020-08-16 00:48 | NUR ---
ASSUMED CARE OF PATIENT AT 1915. PATIENT IS NONVERBAL AND COMMUNICATES BY WRITING OR NODDING HEAD TO YES/NO QUESTIONS. HIS BP IS LOW THIS EVENING AT 93/52. HE IS SITTING UP IN BED. HE HAS TOWEL ACROSS CHEST D/T PATIENT DROOLS AND WHEN EATING FOOD. PATIENT DENIES PAIN. HE IS A/0X3-4. PATIENT HAS IV SALINE LOCK AT LEFT FOREARM THAT IS PATENT AND NO SIGNS OF INFECTION, REDNESS, SWELLING OR DISCOMFORT. PATIENT IS ON PUREED DIET WITH SWALLOWING PRECAUTIONS. HE CAN HAVE THIN LIQUIDS. PATIENT DID TAKE HIS PO MEDS WHOLE WITH WATER WITHOUT INCIDENT. LBM 08/14/20.PATIENT IS UP WITH ASSIST X 1. HE USES HIS CANE FROM HOME TO WALK. PATIENT IS CONTINENT OF BOWEL AND BLADDER. PATIENT DOES HAVE SLIGHT REDNESS TO BUTTOCKS BARRIER CREAM APPLIED BY PATIENT. HE IS INDEPENDENT WITH MOST CARES AND REFUSES FILOMENA CARE ASSISTANCE. PATIENT DID REQUEST BREATHING TREATMENT TONIGHT AROUND 2300. HIS LUNGS ARE DIMINISHED BILATERALLY AND HE WAS FEELING SOA. BETTER NOW AFTER BREATHING TREATMENT. PATIENT RESTING WITH EYES CLOSED. CONTINUING TO MONITOR.
[2020-08-16 07:45] VITALS: BP 121/84
--- NOTE | 2020-08-16 17:58 | NUR ---
ASSUMED CARE OF PATIENT AT approx. 0800. ASSESSMENT CHARTED. MEDICATIONS ADMINISTERED PER MAR; CRUSHED IN PUDDING. PATIENT WAS ADVISED THAT NURSING NEEDS TO SUPERVISE FEEDING BUT PATIENT GESTURED AND "SHOOED" THIS NURSE AWAY. PATIENT PREFERS TO FEED SELF AND TAKES TIME. PATIENT IS ABLE TO COMMUNICATE NEEDS THROUGH WHISPERS AND WRITES NEEDS DOWN ON NOTEPAD IF NOT UNDERSTOOD. PATIENT WAS SOILED WITH FOOD AND WHEN ASKED TO MOVE FOR NURSING TO CHANGE BEDDING AND GOWN, PATIENT PUT COVERS OVER HIS HEAD. PATIENT REPOSITIONS SELF AND IS PROVIDED WITH BARRIER CREAM FOR USE ON BOTTOM WHEN NEEDED. RESTING WITH EYES CLOSED OR WATCHING TV WHEN ROUNDED ON. PATIENT IS AWAITING ON PLACEMENT TO A NURSING FACILITY. WILL CONTINUE TO MONITOR
[2020-08-16 19:23] VITALS: BP 110/78
--- NOTE | 2020-08-17 07:21 | NUR ---
Assumed pt care at 1900. A/OX3, with expressive aphasia, writes on a paper to communicate.Denies pain on assessment. Up with SBA/Cane to the bathroom. Pt is on a puree diet, doesn't want trays moved out of room like they should and have a lot of them at a time, set-up with meals. Fall precautions in place.
[2020-08-17 08:05] VITALS: BP 108/80
[2020-08-17 08:53] VITALS: BP 118/73
--- NOTE | 2020-08-17 09:49 | NUR ---
PATIENT IS AWAKE IN BED. MOVED PATIENT UP IN BED TO SIT UP AND EAT. PATIENT IS ABLE TO COMMUNICATE THROUGH WHISPERING OR WRITING ON PAPER. PATIENT IS COOPERATIVE. PATIENT TOOK MEDICATION PER MAR AND DID NOT NEED MEDICATION CRUSHED. PATIENT DENIES ANY PAIN.
--- NOTE | 2020-08-17 11:19 | NUR ---
I AGREE WITH NURSING ASSESSMENT AND NURSING NOTE DONE BY JESSICA/HYDROGEN CELL TENDER.
--- NOTE | 2020-08-17 12:10 | NUR ---
I have reviewed the student documentation.
--- NOTE | 2020-08-17 12:55 | NUR ---
Received awake on bed. Due medications given as prescribed. On room air. Vital signs stable. On pureed diet, thin liquids- assisted and encouraged in eating and drinking; swallow precautions in place. On MS, not on telemetry; no complains and signs of chest pain, crushing sensation and heaviness. No nausea, no vomiting and no abdominal pain noted. Continent of bowel and bladder, able to use urinal and go to the toilet at times; assisted in getting up, using cane/walker and gait belt. Falls bundle in place, may be impulsive at times. With SL at L FA. Still a/w placement. To continue monitoring patient.
[2020-08-17 15:40] VITALS: BP 127/82
--- NOTE | 2020-08-17 16:10 | NUR ---
[facility] STATED THAT THEY CAN'T ACCEPT PT. CM FOLLOWED UP WITH PT AND HE INDICATED THAT REFERRALS COULD BE SENT TO [facility] AND [facility]. REFERRALS TO BE SENT. CM TO FOLLOW INDICATED WITH DC PLANNING.
--- NOTE | 2020-08-17 17:29 | NUR ---
FAXED REFERRAL TO [facility] SHE WILL REVIEW REFERRAL. DP TO FOLLOW.
[2020-08-17 21:09] VITALS: BP 103/64
[2020-08-18 07:08] VITALS: BP 104/72
--- NOTE | 2020-08-18 08:03 | NUR ---
Assumed pt care at 1900. A/OX3, has expressive aphasia normally writes down what he wants. Denies pain on assessment,VSS. Up w/SBA cane to the bathroom, needs reminders to call for help. Fall safety implemented. Pt hoards food trays in room and doesn't like them thrown away w/o completion of meals. Takes meds crushed w/o problems, drooling noted as well. Resting quietly w/o any problems noted.
--- NOTE | 2020-08-18 14:05 | NUR ---
REFERRALS HAD BEEN SENT TO [facility] FOR REVIEW FOR POSSIBLE ADMISSION. [facility] HAD ATTEMPTED TO CONTACT PT OVER THE PHONE TO COMPLETE MEDICAID QUESTIONAIRE. REPEAT COVID TEST COLLECTED TODAY. CM FOLLOWING REGARDING DC PLANNING.
[2020-08-18 15:22] VITALS: BP 112/72
--- NOTE | 2020-08-18 15:34 | NUR ---
ASSUMED PT CARE THIS AM. PT A&OX4, VSS. PT HAD NO COMPLAINTS OF PAIN. EATING WELL. IV PATENT. PT UP TO BATHROOM. DOES NOT CALL WHEN NEEDED.
[2020-08-18 20:41] VITALS: BP 117/64
--- NOTE | 2020-08-19 02:36 | NUR ---
ASSUMED PT CARE AROUND 1930. AXOX4 WITH INTERMITTENT CONFUSION. IMPULSITIVE NOTED THRUOUT. NO S/S ACUTE DISTRESS NOTED OR REPORTED AT THIS TIME. WILL CONT TO MONITOR FOR ANY CHANGES IN CONDITION.
[2020-08-19 07:09] VITALS: BP 129/87
--- NOTE | 2020-08-19 10:40 | NUR ---
PT A&OX4, VSS, NO C/O PAIN. PATIENT EATS WELL. PATIENT MOVES SELF IN BED. PATIENT PREFERS TO WALK TO BATHROOM. IV LFA PATENT. NO SIGNS OF DISTRESS. WILL CONTINUE TO MONITOR.
--- NOTE | 2020-08-19 15:30 | NUR ---
[facility] INDICATED THEY COULD ACCEPT PT. CM NOTIFED PT AND HE NOW STATED THAT HE WOULDN'T RETURN THERE. HE SAID HE WOULD GO TO THEIR [facility] LOCATION ON [address]. CM NOTIFIED [facility] AND THEY WERE ABLE TO ACCEPT AT [facility] LOCATION. PT IS AWARE AND AGREEABLE. CHART COPY ORDERED. ORDERS TO BE FAXED TO . REPORT TO BE CALLED TO . CM TO NOTIFY PT'S FRIEND ADRY OF DISCHARGE. NO OTHER CM INTERVENTION INDICATED. CASE CLOSED.
[2020-08-19] MEDS ORDERED: PEPCID20 MG PO (15:41)
[2020-08-19] MEDS ORDERED: IPRAT-ALBUT 0.5-3 ML INH (15:41)
[2020-08-19 16:01] VITALS: BP 103/71
== END 2020-08-19 16:30 | DRG 180 ==
LOC: ER 19:47 → EROBS 22:15 → 4W 22:15
PROVIDERS: Emergency Medicine; Nurse Practitioner Family; ADMIT Internal Medicine; ATTEND Internal Medicine
DX: C34.90 Malignant neoplasm of unspecified part of unspecified bronchus or lung (principal); E43 Unspecified severe protein-calorie malnutrition; G93.41 Metabolic encephalopathy; E87.0 Hyperosmolality and hypernatremia; R64 Cachexia; Z68.1 Body mass index [BMI] 19.9 or less, adult; R93.89 Abnormal findings on diagnostic imaging of other specified body structures; E86.0 Dehydration; R13.10 Dysphagia, unspecified; Z20.828 Contact with and (suspected) exposure to other viral communicable diseases; I10 Essential (primary) hypertension; K21.9 Gastro-esophageal reflux disease without esophagitis; F41.9 Anxiety disorder, unspecified; J44.9 Chronic obstructive pulmonary disease, unspecified; R62.7 Adult failure to thrive; F32.9 Major depressive disorder, single episode, unspecified; N40.0 Benign prostatic hyperplasia without lower urinary tract symptoms; D69.6 Thrombocytopenia, unspecified; D64.9 Anemia, unspecified; F43.20 Adjustment disorder, unspecified; G20 Parkinson's disease; Z88.8 Allergy status to other drugs, medicaments and biological substances; Z87.891 Personal history of nicotine dependence; Z91.19 Patient's noncompliance with other medical treatment and regimen; Z79.82 Long term (current) use of aspirin; Z79.899 Other long term (current) drug therapy
CPT/HCPCS: 10040